=== PATIENT | female | born 1995 | race Caucasian/White ===

== ENCOUNTER 2018-09-29 06:36 | Outpatient (CLI) | payer BC ==
[2018-09-29 17:52] LABS: Hemoglobin 12.2 g/dL (12.0-16.0); Mean Corpuscular HGB CONC 32.6 g/dL (32.0-36.0); Mean Corpuscular Hemoglobin 26.3 pg (27.0-31.0); Mean Corpuscular Volume 80.6 fL (78.0-98.0); Mean Platelet Volume 8.1 fL (7.4-10.4); Platelet Count 309 thou/uL (130-400); Red Blood Cell (RBC) Count 4.62 mill/uL (4.20-5.40); White Blood Cell (WBC) Count 9.2 thou/uL (4.8-10.8)
[2018-09-29 18:16] LABS: BHCG - Serum Negative (NEGATIVE); Pregs Control Background? CLEAR/WHITE (CLR/WHITE); Pregs Control Bar Appear? YES (CONTROL BAR)
== END 2018-09-29 06:37 | disposition home or self-care (01) ==
LOC: LABBT 06:36
PROVIDERS: ATTEND Obstetrics & Gynecology
DX: Z01.812 Encounter for preprocedural laboratory examination (principal); N75.0 Cyst of Bartholin's gland
CPT/HCPCS: 84703; 85027

== ENCOUNTER 2018-09-30 11:38 | Day surgery (SDC) | payer BC, OTHER ==
[2018-09-29 17:44] VITALS: BMI 23.3
--- NOTE | 2018-09-29 20:56 | HP ---
REASON FOR ADMISSION: Recurrent Bartholin's gland cyst, right. SCHEDULED PROCEDURE: Marsupialization and Word catheter placement. HISTORY OF PRESENT ILLNESS: Ms. Miranda is a 23-year-old G0 who started seeing me back in June for a painless 4-5 cm right Bartholin's. Initial treatment involved incision and drainage with Word catheter placement for approximately 10 days. Subsequently after removal of Word catheter, it recurred and marsupialization in the office was carried out. The cyst has recurred. Decision was made to proceed with a more extensive marsupialization and perhaps Word catheter placement in the operating room at [facility]. OBSTETRIC AND GYNECOLOGIC HISTORY: No history of STDs. The patient is on control pills. PAST MEDICAL HISTORY: None. PAST SURGICAL HISTORY: I and D of Bartholin's only and extraction of wisdom tooth. ALLERGIES: NONE. MEDICATIONS: None. SOCIAL HISTORY: Denies tobacco, alcohol, or drug use. FAMILY HISTORY: Noncontributory. REVIEW OF SYSTEMS: Noncontributory. PHYSICAL EXAMINATION: GENERAL: White female. VITAL SIGNS: 5 feet 6 inches, weight 141, BMI 22.8, blood pressure 120/78. HEENT: Within normal limits. LUNGS: Clear to auscultation bilaterally. HEART: Regular rate and rhythm. ABDOMEN: Soft, nontender. No rebound or guarding. : Vulva, the patient has a large nondraining 4-5 cm right Bartholin's gland cyst that is non abscessed. No other lesions are noted. Cervix is nulliparous. Uterus anteverted, small, 4 weeks. Adnexa are without masses bilaterally. IMPRESSION: Recurrent Bartholin's cyst, right-sided. PLAN: We will proceed with marsupialization and possible Word catheter placement. The patient understands risks and benefits of procedure including persistent recurrence, bleeding, infection and pain. We will administer appropriate antibiotic and DVT prophylaxis. Job ID: [id number]
[2018-09-30] MEDS ORDERED: CeleCOXIB 100 MG CAP ONE (12:02)
[2018-09-30] MEDS ORDERED: Gabapentin 300 MG CAP ONE (12:02)
[2018-09-30] MEDS ORDERED: Bupivacaine/Epinephrine 0.25% 30 ML VIAL ONE (13:04)
[2018-09-30] MEDS ORDERED: Midazolam HCl 2 mg/2 ml Vial ONE (13:25)
[2018-09-30] MEDS ORDERED: Fentanyl 100 MCG/2 ML VIAL ONE (13:28)
[2018-09-30] MEDS ORDERED: PROPOFOL 200 MG/20 ML VIAL ONE (15:04)
[2018-09-30] MEDS ORDERED: Ondansetron PF 4 MG/2 ML Vial ONE (15:04)
[2018-09-30] MEDS ORDERED: Lidocaine 1% PF 5 ML VIAL ONE (15:04)
--- NOTE | 2018-09-30 21:43 | OP ---
DATE OF PROCEDURE: 09/30/2018 PREOPERATIVE DIAGNOSIS: Recurrent right Bartholin cyst, approximately 5 cm, unresponsive to Word catheter placement and marsupialization in the office. POSTOPERATIVE DIAGNOSIS: Recurrent right Bartholin cyst, approximately 5 cm, unresponsive to Word catheter placement and marsupialization in the office. PROCEDURE: Extensive marsupialization with Word catheter placement. ANESTHESIA: Laryngeal mask airway, Steven Warner MD. ESTIMATED BLOOD LOSS: 10 mL. MEDICATIONS: Ancef 2 g pre incision. DVT PROPHYLAXIS: SCDs. FINDINGS: 1. Persistent recurrent right Bartholin cyst without evidence of purulence at incision and drainage. 2. Good eversion of the edges of marsupialization tract post suturing. 3. Word catheter placement with 5 mL of sterile water in situ. 4. Hemostasis at the end of the procedure. DISPOSITION: Recovery room in good condition. DESCRIPTION OF PROCEDURE: After I obtained proper informed consent, the patient was taken to the operative room where laryngeal mask airway anesthesia was achieved without difficulty. She was prepped and draped in dorsal lithotomy in Praful stirrups in the usual manner. Bartholin cyst was easily identified, and the level of either the original duct or previous Word catheter marsupialization tract was easily identifiable just outside the hymenal ring on the patient's right. This was incised sharply using an 11 blade over approximately 1.5 cm length and then created a cruciate incision of the same length using the Metzenbaum scissors. The base of the gland could easily be visualized and the anterior aspect of the gland as well. Using a 3-0 Monocryl on an SH needle, each corner of the cross of the cruciate ligament was ligated in a running continuous manner individually helping to natalio the edges and gape the newly created fistula tract. Once this was done x4, the Word catheter was introduced and blown up to approximately 5 mL of sterile water. It was identified, inspected, and noted to be in situ and in the proper location. Good hemostasis was noted. Counts were correct, and the patient was awakened and taken to recovery room. She will be followed up at [facility] in 1 week. Anticipate trying to leave Word catheter in for 2 to 3 weeks, preferably. Job ID: [id number]
== END 2018-09-30 15:35 | disposition home or self-care (01) ==
LOC: SDC 11:38
PROVIDERS: ATTEND Obstetrics & Gynecology
PROC: 0U9LXZZ Drainage of Vestibular Gland, External Approach (ICD-10-PCS; principal; 2018-09-30)
DX: N75.0 Cyst of Bartholin's gland (principal)
CPT/HCPCS: J0690; J2001; J2250; J2405; J2704; J3010